=== PATIENT | male | born 1990 | race Caucasian/White ===

== ENCOUNTER 2017-06-22 20:38 | Emergency (ER) | payer MEDICAID ==
[2017-06-22 21:09] VITALS: RESP 16; TEMP 97.3
--- NOTE | 2017-06-22 22:12 | C.PDOC ---
History Of Present Illness 26 year old male who presents to the ER with a complaint of atraumatic b/l ankle pain swelling for the last few days. Patient had arthroscopic surgery done on his both ankles to remove scar tissue 4 months ago at [facility] by Dr. Kirt Mills. Patient reports that the pain to his ankles may be due to the recent changes in weather. Patient is also requesting the evaluation of a wound to the nail margin or the right thumb; he states he suffered a laceration a few days ago. Denies weakness, numbness, fever, chills, other joint pain, or recent injury/trauma. Time Seen by Provider: 06/22/17 21:25 Chief Complaint (Nursing): Lower Extremity Problem/Injury History Per: Patient History/Exam Limitations: no limitations Onset/Duration Of Symptoms: Hrs Current Symptoms Are (Timing): Still Present Recent travel outside of the [place]: No Past Medical History Reviewed: Historical Data, Nursing Documentation, Vital Signs Vital Signs: Last Vital Signs Temp 97.3 F L 06/22/17 21:06 Pulse 78 06/22/17 22:42 Resp 16 06/22/17 22:42 BP 137/81 06/22/17 22:42 Pulse Ox 97 06/23/17 00:46 - Medical History PMH: No Chronic Diseases Surgical History: No Surg Hx Family History: States: Unknown Family Hx - Social History Hx Alcohol Use: Yes Hx Substance Use: No - Immunization History Hx Tetanus Toxoid Vaccination: No Hx Influenza Vaccination: No Hx Pneumococcal Vaccination: No Review Of Systems Except As Marked, All Systems Reviewed And Found Negative. Musculoskeletal: Positive for: Foot Pain Neurological: Negative for: Weakness, Numbness Physical Exam - Physical Exam Appears: Well, Non-toxic, Other (mild painful distress) Skin: Warm, Dry Head: Atraumatic, Normacephalic Oral Mucosa: Moist Extremity: Normal ROM (x4), Tenderness (mild tenderness w/ mild edema to b/l ankle), Capillary Refill (normal), No Deformity, Other (< .5cm healing tender to palpation laceration to right thumb, with no erythema, no edema, no d/c, FROM of the R thumb, cap refill and distal sensation normal) Pulses: Left Radial: Normal, Right Radial: Normal, Left Dorsalis Pedis: Normal, Right Dorsalis Pedis: Normal Neurological/Psych: Oriented x3, Normal Speech, Normal Cognition, Normal Motor, Normal Sensation ED Course And Treatment O2 Sat by Pulse Oximetry: 97 (Room air) Pulse Ox Interpretation: Normal Progress Note: Toradol administered. Medical Decision Making Medical Decision Makin26 year old male s/p arthroscopic surgery to b/l ankles, complains of atraumatic b/l ankle pain swelling for the last few days. Also presents for wound check to the nail margin or the right thumb. Plan: - Naprosyn po Rxs provided to the pt and instructed to take as prescribed. Otherwise, advised to rest, ice and elevate both ankles. Advised that he will need to f/u with his orthopedist in 2 days for re-evaluation. Instructed on proper wound care. Advised to return to the ER at any time for any new or worsening symptoms. Disposition Counseled Patient/Family Regarding: Studies Performed, Diagnosis, Need For Followup, Rx Given - Disposition Disposition: HOME/ ROUTINE Disposition Time: 22:09 Condition: STABLE Additional Instructions: Take medications as prescribed. Follow up with your pmd and orthopedist in 2 days for re-evaluation. Return to the ER at any time for any new or worsening symptoms. Prescriptions: Cephalexin [Keflex] 500 mg PO Q6 #28 capsule Meloxicam [Mobic] 15 mg PO DAILY #30 tab Instructions: Acute Wound Care (ED), Arthralgia (ED) Forms: [facility] (Sami), Work Excuse Print Language: INDONESIAN - Clinical Impression Clinical Impression: Visit for wound check, Arthralgia - PA / SPECIALIZED LANGUAGE INSTRUCTOR / Resident Statement MD/DO has reviewed & agrees with the documentation as recorded. - Scribe Statement The provider has reviewed the documentation as recorded by the [employer] All medical record entries made by the Deon were at my direction and personally dictated by me. I have reviewed the chart and agree that the record accurately reflects my personal performance of the history, physical exam, medical decision making, and the department course for this patient. I have also personally directed, reviewed, and agree with the discharge instructions and disposition.
[2017-06-22 22:43] VITALS: BP 137/81; PULSE 78
[2017-06-23 00:42] VITALS: O2SAT 97
== END 2017-06-22 22:42 | disposition home or self-care (01) ==
LOC: C.ER 20:38
DX: Z48.00 Encounter for change or removal of nonsurgical wound dressing (principal); M25.572 Pain in left ankle and joints of left foot; M25.571 Pain in right ankle and joints of right foot
CPT/HCPCS: 96372; 99284; J1885

== ENCOUNTER 2018-08-09 03:30 | Emergency (ER) | payer SELFPAY ==
[2018-08-09] MEDS ORDERED: Potassium Chloride 20 mEq ER Tab PO ONE (05:44)
[2018-08-09 06:31] LABS: BARBITURATES, UR NEGATIVE (NEGATIVE); BENZODIAZEPINES, UR NEGATIVE (NEGATIVE); OPIATES, UR NEGATIVE (NEGATIVE); PHENCYCLIDINE, UR NEGATIVE (NEGATIVE)
[2018-08-09 06:48] LABS: ALB/GLOB RATIO 1.1 (1.0-2.1); ALBUMIN 4.1 g/dL (3.5-5.0); AST/SGOT 44 U/L (17-59); BLOOD UREA NITROGEN 14 mg/dL (9-20); CALCIUM 9.1 mg/dl (8.6-10.4); GFR NON-AFRICAN AMERICAN > 60
[2018-08-09 06:49] LABS: ALT/SGPT 57 U/L (21-72)
[2018-08-09 06:56] LABS: INR 1.1; PROTHROMBIN TIME 11.7 SECONDS (9.7-12.2)
[2018-08-09 07:06] LABS: HEMOGLOBIN 15.3 g/dL (12.0-18.0); MEAN CELL VOLUME 84.6 fL (80.0-94.0); MEAN CORPUSCULAR HEMOGLOBIN 28.2 pg (27.0-31.0); MEAN CORPUSCULAR HGB CONC 33.4 g/dL (33.0-37.0); RBC 5.41 Mil/uL (4.40-5.90); RED CELL DISTRIBUTION WIDTH 13.3 % (11.5-14.5); WHITE BLOOD COUNT 11.3 K/uL (4.8-10.8)
[2018-08-09 07:07] LABS: BASO # 0.1 K/uL (0.0-0.2); BASO % 0.5 % (0.0-2.0); EOS # 0.4 K/uL (0.0-0.7); EOS % 3.4 % (0.0-4.0); LYMPH # 3.5 K/uL (1.0-4.3); LYMPH % 31.2 % (20.0-40.0); MEAN PLATELET VOLUME 8.3 fL (7.2-11.7); MONO % 9.2 % (0.0-10.0); NEUT # 6.3 K/uL (1.8-7.0); NEUT % 55.7 % (50.0-75.0); NRBC % 0.1 % (0.0-2.0)
--- NOTE | 2018-08-09 09:25 | RAD ---
Date of service: 08/09/2018 PROCEDURE: CHEST RADIOGRAPH, 1 VIEW HISTORY: headache COMPARISON: None available. FINDINGS: LUNGS: Clear. PLEURA: No pneumothorax or pleural fluid seen. CARDIOVASCULAR: Normal. OSSEOUS STRUCTURES: No significant abnormalities. VISUALIZED UPPER ABDOMEN: Normal. OTHER FINDINGS: None. IMPRESSION: No active disease.
--- NOTE | 2018-08-10 11:59 | CARD ---
APPROVED REPORT Date of service: 08/09/2018 EKG Measurement Heart [id number] [id number] <Conclusion> Normal sinus rhythm Normal ECG
--- NOTE | 2018-08-15 09:31 | CT ---
Date of service: 08/09/2018 PROCEDURE: CT HEAD WITHOUT CONTRAST. HISTORY: Headache COMPARISON: None available. TECHNIQUE: Axial computed tomography images were obtained through the head/brain without intravenous contrast. Radiation dose: Total exam DLP = dose unavailable due to technical failure. This CT exam was performed using one or more of the following dose reduction techniques: Automated exposure control, adjustment of the mA and/or kV according to patient size, and/or use of iterative reconstruction technique. FINDINGS: HEMORRHAGE: No intracranial hemorrhage. BRAIN: Normal art-white matter differentiation and density are appreciated throughout the cerebrum and cerebellum with the brainstem appearing unremarkable as well. There is no mass effect. There is no suspicious extra-axial fluid collection and the midline brain anatomy appears diffusely unremarkable. VENTRICLES: Unremarkable. No hydrocephalus. CALVARIUM: No destructive bony lesion or displaced fracture identified including through the skullbase. PARANASAL SINUSES: Unremarkable as visualized. No significant inflammatory changes. MASTOID AIR CELLS: Unremarkable as visualized. No inflammatory changes. OTHER FINDINGS: None. IMPRESSION: Unremarkable noncontrast head CT. Concordant preliminary report from [facility], 08/09/2018.
== END 2018-08-09 05:55 | disposition home or self-care (01) ==
LOC: C.ER 03:30
DX: R20.2 Paresthesia of skin (principal)
CPT/HCPCS: 70450; 71045; 80053; 82948; 84484; 85025; 85610; 85730; 93005; 99284; G0480